=== PATIENT | female | born 1970 | race African-American/Black ===

== ENCOUNTER → 2017-01-22 | Outpatient (CLI) | payer BC ==
--- NOTE | ~2017-01-22 | MY27 ---
[facility] A Service of [facility] RADIOLOGY TEXT RESULTS PATIENT: TRUE ALBA LOCATION: [facility] #: [id number] : [birth year] UNIT #: [id number] AGE: [address]: Ubaldo Winter MD SEX: F ORDER DR: [id number] [facility] [address] [place], [place] [address] [id number] O MR#: [id number] Acc #: [id number] NAME: TRUE ALBA : 1970 SEX: F STUDY DATE/TIME: 01/22/2017 15:58 UNIT: [facility] ROOM: STUDY DESCRIPTION: MY KIARA SCREEN W/ CAD UNI LT Attending Physician: Ubaldo Winter M.D. Referring Physician: Ubaldo Winter M.D. Ordering Physician: Ubaldo Winter M.D. Primary Care Physician: Ubaldo Winter M.D. MEDICAL IMAGING REPORT This report is preliminary unless electronic signature is present EXAM Unilateral left digital screening mammogram 01/22/17 [facility]. HISTORY 46-year-old woman, prior right mastectomy age 30. Adjuvant therapy. Personal and family history, mother age 64. Annual screen. COMPARISON Mammograms dates to 09/27/05 with most recent screening comparison 01/20/16. FINDINGS Digital imaging of the left breast was completed utilizing screening protocol. Review includes FDA-approved CAD device. Breast parenchyma is fatty replaced and stable. There is no interval occurring breast mass. There are no suspicious microcalcifications and no architectural distortion. IMPRESSION Negative unilateral left mammogram. Status post right mastectomy. Annual screening recommended. Patients over the age of 40 are entered into a reminder system with target due date for the next mammogram. BIRADS: 1 Negative Dictated by... Rafael Esteban M.D. THIS IS AN ELECTRONICALLY VERIFIED REPORT Rafael Esteban M.D. at 01/23/2017 2:38 PM [facility] A Service [facility] RADIOLOGY TEXT RESULTS PATIENT: TRUE ALBA [facility] #[facility] [id number] : [birth year] UNIT #: [id number] AGE: [address]: Ubaldo Winter MD SEX: F ORDER DR: JAVID/jocelyn TD: 01/23/2017 11:20 JOB #: [id number] MEDICAL IMAGING REPORT Page 1 of 1 COPY
== END | disposition home or self-care (01) ==
LOC: CWCC 15:48
DX: Z12.13 Encounter for screening for malignant neoplasm of small intestine (principal); Z85.3 Personal history of malignant neoplasm of breast; Z80.3 Family history of malignant neoplasm of breast; Z90.11 Acquired absence of right breast and nipple
CPT/HCPCS: G0202